=== PATIENT | male | born 1980 | race African-American/Black ===

== ENCOUNTER 2018-09-10 09:25 | Day surgery (SDC) | payer MEDICAID ==
[~2018-09-10] VITALS: Ht 175.3 cm; Wt 124.7 kg
[2018-09-10] MEDS ORDERED: LIDOCAINE MPF 0.5% 250 MG/50 ML VIAL INJ ONE (09:26)
[2018-09-10] MEDS ORDERED: BUPIVACAINE /PF 0.25% 30 ML VIAL INJ ONE (09:26)
[2018-09-10] MEDS ORDERED: methylPREDNISolone ACETATE 40 MG/ML IM ONE (09:26)
[2018-09-10] MEDS ORDERED: MIDAZOLAM HCL 5 MG/5 ML VIAL ONE (10:02)
[2018-09-10] MEDS ORDERED: DIPHENHYDRAMINE INJ 50 MG/ML VIAL ONE (10:03)
[2018-09-10] MEDS ORDERED: IOHEXOL 50 ML IV ONE (10:25)
[2018-09-10 14:39] VITALS: BP_SYST 131
== END 2018-09-10 11:30 | disposition home or self-care (01) ==
LOC: SDS 09:25 → SMU 09:29 → SDS 11:30
PROVIDERS: ATTEND Internal Medicine
DX: M51.16 Intervertebral disc disorders with radiculopathy, lumbar region (principal); M54.5 Low back pain; M79.10 Myalgia, unspecified site; Z83.3 Family history of diabetes mellitus; Z79.899 Other long term (current) drug therapy; Z79.01 Long term (current) use of anticoagulants; Z98.890 Other specified postprocedural states
CPT/HCPCS: 62323; J1030; J1200; J2001; J2250; J3490; J7120; Q9967; 76000

== ENCOUNTER 2018-11-05 10:09 | Day surgery (SDC) | payer MEDICAID ==
[~2018-11-05] VITALS: Ht 170.2 cm; Wt 124.7 kg
[2018-11-05] MEDS ORDERED: methylPREDNISolone ACETATE 40 MG/ML IM ONE (10:10)
[2018-11-05] MEDS ORDERED: BUPIVACAINE /PF 0.25% 30 ML VIAL INJ ONE (10:10)
[2018-11-05] MEDS ORDERED: LIDOCAINE 2%, 20 ML MDV INJ ONE (10:10)
[2018-11-05] MEDS ORDERED: IOPAMIDOL 50 ML VIAL IV ONE (10:10)
[2018-11-05 14:00] VITALS: BP_SYST 148
[2018-11-05] MEDS ORDERED: MIDAZOLAM HCL 2 MG/2 ML VIAL (VERSED) ONE (14:05)
[2018-11-05] MEDS ORDERED: MIDAZOLAM HCL 5 MG/5 ML VIAL ONE (14:07)
[2018-11-05] MEDS ORDERED: DIPHENHYDRAMINE INJ 50 MG/ML VIAL ONE (14:07)
== END 2018-11-05 13:10 | disposition home or self-care (01) ==
LOC: SDS 10:09
PROVIDERS: ATTEND Internal Medicine
DX: M51.16 Intervertebral disc disorders with radiculopathy, lumbar region (principal); M54.5 Low back pain; Z83.3 Family history of diabetes mellitus; Z79.899 Other long term (current) drug therapy; Z98.890 Other specified postprocedural states; M79.10 Myalgia, unspecified site; I10 Essential (primary) hypertension
CPT/HCPCS: 62323; J1030; J1200; J2001; J2250; J3490; Q9967; 76000; J3465